=== PATIENT | female | born 1980 | race Caucasian/White ===

== ENCOUNTER 2022-10-24 13:36 | Emergency (ER) | payer MEDICAID, OTHER | END 2022-10-24 14:20 | disposition home or self-care (01) | LOC: JD.ED 13:36 | DX: L03.116 Cellulitis of left lower limb (principal); L02.416 Cutaneous abscess of left lower limb; Z88.0 Allergy status to penicillin; Z88.1 Allergy status to other antibiotic agents; Z88.5 Allergy status to narcotic agent | CPT/HCPCS: 99283 ==

== ENCOUNTER 2022-10-26 20:26 | Emergency (ER) | payer MEDICAID | END 2022-10-26 21:44 | disposition home or self-care (01) | LOC: JD.ED 20:26 | DX: S63.502A Unspecified sprain of left wrist, initial encounter (principal); Z88.0 Allergy status to penicillin; Z88.5 Allergy status to narcotic agent; Z88.1 Allergy status to other antibiotic agents; Z88.8 Allergy status to other drugs, medicaments and biological substances; W00.0XXA Fall on same level due to ice and snow, initial encounter | CPT/HCPCS: 73110-26-LT; 73110-LT; 99283 ==

== ENCOUNTER 2022-11-16 10:35 | Emergency (ER) | payer MEDICAID ==
[2022-11-16] MEDS ORDERED: Ketorolac 60 MG/2 ML SDV IM ONE (11:35)
[2022-11-16 12:43] LABS: CORONAVIRUS COVID-19 NAA NEGATIVE (NEGATIVE)
== END 2022-11-16 13:49 | disposition home or self-care (01) ==
LOC: JD.ED 10:35
DX: S22.42XA Multiple fractures of ribs, left side, initial encounter for closed fracture (principal); J98.8 Other specified respiratory disorders; J45.909 Unspecified asthma, uncomplicated; Z88.0 Allergy status to penicillin; Z88.8 Allergy status to other drugs, medicaments and biological substances; Z88.1 Allergy status to other antibiotic agents; Z88.5 Allergy status to narcotic agent; Z20.822 Contact with and (suspected) exposure to COVID-19; W22.8XXA Striking against or struck by other objects, initial encounter
CPT/HCPCS: 0241U; 71111; 87651; 96372; 99283; J1885